=== PATIENT | female | born 1935 ===

== ENCOUNTER 2017-09-29 17:07 | Emergency (ER) | payer OTHER ==
[2017-09-29 18:56] LABS: ABS Basophils 0.1 10^3/ul (0-0.2); ABS Eosinophils 0.1 10^3/ul (0-0.6); ABS Lymphocytes 1.5 10^3/ul (1.0-4.8); ABS Monocytes 0.7 10^3/ul (0-0.8); ABS Nucleated RBC 0 10^3/ul; Eosinophil % 0.8 % (0-6); Hematocrit 44 % (35-47); Hemoglobin 14.9 g/dl (12.0-16.0); Lymphocyte % 14.2 % (25-47); Mean Corpuscular HGB Conc 34 g/dl (31-36); Mean Corpuscular Hemoglobin 30 pg (27-31); Mean Corpuscular Volume 88 fL (80-97); Mean Platelet Volume 9.1 um3 (7.4-10.4); Nucleated Red Blood Cells % 0.1; Platelet Count 232 10^3/ul (150-450); Red Blood Count 5.01 10^6/ul (4.00-5.40); Red Cell Distribution Width 14 % (10.5-15); White Blood Count 10.3 10^3/ul (3.5-10.8)
[2017-09-29 19:03] LABS: INR 0.95 (0.77-1.02)
--- NOTE | 2017-09-29 19:07 | RAD ---
Indication: EKG changes. Bradycardia. Comparison: No relevant prior exams available on the [facility] PACS for comparison. Technique: Upright AP 1850 hours Report: Elevated lung volumes. Mild prominence of interstitial markings. Minimal linear atelectasis at the LEFT lung base. No focal pulmonary lesion, compelling alveolar consolidation, pleural effusion, pneumothorax. The heart and pulmonary vasculature are unremarkable. Mildly tortuous descending thoracic aorta. IMPRESSION: #. Stigmata of potential obstructive lung disease. #. No acute cardiopulmonary process evident.
[2017-09-29 19:17] LABS: EGFR Non-African American 57.3 (>60)
--- NOTE | 2017-09-29 21:38 | ED ---
HPI Cardiac - HPI Summary HPI Summary: Patient is here with her son, complains of episodes of lower heart rate with readings of high 30's and low 40's. , decreased energy, inc in chronic shortness of breath, increased sleeping. Patient started on lisinopril 10 mg daily and atorvastatin 20 mg daily 1 week ago. Patient and son taking patients heart rate and blood pressure daily since starting medication. Denies fever, acute on chronic cough, sore throat, CP, N/V/D, abdominal pain, change in urinary BM. Medical history is CVA "years ago", HTN, glaucoma. Nonsmoker. No anti-coag. 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 Denies history of blood clots, history of cancer, estrogen supplements or medications, recent surgery or trauma, recent long travel, recent immobility. Patient moved here from [place] 1 yr ago, just started care with a PCP 1 week ago. States was not very compliant with PCP back in [place]. - History of Current Complaint Chief Complaint: EDGeneral Stated Complaint: LOW HRT RATE Time Seen by Provider: 09/29/17 18:09 Hx Obtained From: Patient, Family/Frame Hand Onset/Duration: Started Days Ago Timing: Intermittent Initial Severity: Moderate Current Severity: None Pain Intensity: 0 Pain Scale Used: 0-10 Numeric Chest Pain Radiates: No Aggravating Factor(s): Exertion Associated Signs and Symptoms: Positive: Negative - Risk Factors Pulmonary Embolism Risk Factors: Negative Cardiac Risk Factors: Hypertension, Elevated Lipids Atrial Fibrillation Risk Factors: Hypertension - Allergy/Home Medications Allergies/Adverse Reactions: Allergies Allergy/AdvReac Type Severity Reaction Status Date / Time No Known Allergies Allergy Verified 09/29/17 17:13 Home Medications: Home Medications Atenolol TAB* [Tenormin TAB* 25 MG] 25 mg PO DAILY 09/29/17 [History Confirmed 09/29/17] Atorvastatin* [Lipitor*] 20 mg PO DAILY 09/29/17 [History Confirmed 09/29/17] Lisinopril TAB* [Prinivil TAB*] 10 mg PO DAILY 09/29/17 [History Confirmed 09/29] PMH/Surg Hx/FS Hx/Imm Hx Endocrine/Hematology History: Denies: Hx Anticoagulant Therapy Cardiovascular History: Denies: Hx Cardiac Arrest History: Denies: Hx Dialysis Neurological History: Reports: Hx CVA Infectious Disease History: No Infectious Disease History: Denies: Traveled Outside the [place] in Last 30 Days - Social History Alcohol Use: Rare Substance Use Type: Reports: None Smoking Status (MU): Never Smoked Tobacco Review of Systems Constitutional: Negative Eyes: Negative ENT: Negative Cardiovascular: Negative Positive: Shortness Of Breath Gastrointestinal: Negative Genitourinary: Negative Musculoskeletal: Negative Skin: Negative Neurological: Negative Psychological: Normal All Other Systems Reviewed And Are Negative: Yes Physical Exam Triage Information Reviewed: Yes Vital Signs On Initial Exam: Initial Vitals Temp Pulse Resp BP Pulse Ox 98.1 F 46 16 164/55 100 09/29/17 17:10 09/29/17 17:10 09/29/17 17:10 09/29/17 17:10 09/29/17 17:10 Vital Signs Reviewed: Yes Appearance: Positive: Well-Appearing Skin: Positive: Warm Head/Face: Positive: Normal Head/Face Inspection Eyes: Positive: Normal Neck: Positive: Supple Respiratory/Lung Sounds: Positive: Clear to Auscultation Cardiovascular: Positive: Normal Abdomen Description: Positive: Nontender Musculoskeletal: Positive: Normal Neurological: Positive: Normal Psychiatric: Positive: Normal AVPU Assessment: Alert - [place] Coma Scale Best Eye Response: 4 - Spontaneous Best Motor Response: 6 - Obeys Commands Best Verbal Response: 5 - Oriented Coma Scale Total: 15 Diagnostics - Vital Signs Vital Signs Temp Pulse Resp BP Pulse Ox 09/29/17 21:24 98.6 F 09/29/17 21:01 87 14 150/80 94 09/29/17 21:00 84 16 95 09/29/17 20:32 87 15 141/97 98 09/29/17 20:01 83 20 146/85 95 09/29/17 20:00 79 16 95 09/29/17 19:32 82 16 144/85 97 09/29/17 19:01 82 18 170/96 97 09/29/17 19:00 82 20 97 09/29/17 18:31 84 20 172/96 92 09/29/17 18:01 86 9 159/96 94 09/29/17 17:10 98.1 F 46 16 164/55 100 - Laboratory Lab Results: Lab Results 09/29/17 09/29/17 09/29/17 Range/Units 18:41 18:41 18:41 WBC 10.3 (3.5-10.8) 10^3/ul RBC 5.01 (4.00-5.40) 10^6/ul Hgb 14.9 (12.0-16.0) g/dl Hct 44 (35-47) % MCV 88 (80-97) fL MCH 30 (27-31) pg MCHC 34 (31-36) g/dl RDW 14 (10.5-15) % Plt Count 232 (150-450) 10^3/ul MPV 9.1 (7.4-10.4) um3 Neut % (Auto) 77.6 (38-83) % Lymph % (Auto) 14.2 L (25-47) % [place] % (Auto) 6.7 (0-7) % Eos % (Auto) 0.8 (0-6) % Baso % (Auto) 0.7 (0-2) % Absolute Neuts (auto) 8.0 H (1.5-7.7) 10^3/ul Absolute Lymphs (auto) 1.5 (1.0-4.8) 10^3/ul Absolute Monos (auto) 0.7 (0-0.8) 10^3/ul Absolute Eos (auto) 0.1 (0-0.6) 10^3/ul Absolute Basos (auto) 0.1 (0-0.2) 10^3/ul Absolute Nucleated RBC 0 10^3/ul Nucleated RBC % 0.1 INR (Anticoag Therapy) 0.95 (0.77-1.02) Sodium 140 (135-145) mmol/L Potassium 4.2 (3.5-5.0) mmol/L Chloride 105 (101-111) mmol/L Carbon Dioxide 27 (22-32) mmol/L Anion Gap 8 (2-11) mmol/L BUN 19 (6-24) mg/dL Creatinine 0.94 (0.51-0.95) mg/dL Est GFR ( Amer) 69.3 (>60) Est GFR (Non-Af Amer) 57.3 (>60) BUN/Creatinine Ratio 20.2 H (8-20) Glucose 107 H (70-100) mg/dL Lactic Acid (0.5-2.0) mmol/L Calcium 9.3 (8.6-10.3) mg/dL Total Bilirubin 0.60 (0.2-1.0) mg/dL AST 18 (13-39) U/L ALT 11 (7-52) U/L Alkaline Phosphatase 52 (34-104) U/L Troponin I 0.03 (<0.04) ng/mL Total Protein 7.1 (6.4-8.9) g/dL Albumin 3.9 (3.2-5.2) g/dL Globulin 3.2 (2-4) g/dL Albumin/Globulin Ratio 1.2 (1-3) TSH 1.63 (0.34-5.60) mcIU/mL 09/29/17 Range/Units 18:41 WBC (3.5-10.8) 10^3/ul RBC (4.00-5.40) 10^6/ul Hgb (12.0-16.0) g/dl Hct (35-47) % MCV (80-97) fL MCH (27-31) pg MCHC (31-36) g/dl RDW (10.5-15) % Plt Count (150-450) 10^3/ul MPV (7.4-10.4) um3 Neut % (Auto) (38-83) % Lymph % (Auto) (25-47) % [place] % (Auto) (0-7) % Eos % (Auto) (0-6) % Baso % (Auto) (0-2) % Absolute Neuts (auto) (1.5-7.7) 10^3/ul Absolute Lymphs (auto) (1.0-4.8) 10^3/ul Absolute Monos (auto) (0-0.8) 10^3/ul Absolute Eos (auto) (0-0.6) 10^3/ul Absolute Basos (auto) (0-0.2) 10^3/ul Absolute Nucleated RBC 10^3/ul Nucleated RBC % INR (Anticoag Therapy) (0.77-1.02) Sodium (135-145) mmol/L Potassium (3.5-5.0) mmol/L Chloride (101-111) mmol/L Carbon Dioxide (22-32) mmol/L Anion Gap (2-11) mmol/L BUN (6-24) mg/dL Creatinine (0.51-0.95) mg/dL Est GFR ( Amer) (>60) Est GFR (Non-Af Amer) (>60) BUN/Creatinine Ratio (8-20) Glucose (70-100) mg/dL Lactic Acid 0.7 (0.5-2.0) mmol/L Calcium (8.6-10.3) mg/dL Total Bilirubin (0.2-1.0) mg/dL AST (13-39) U/L ALT (7-52) U/L Alkaline Phosphatase (34-104) U/L Troponin I (<0.04) ng/mL Total Protein (6.4-8.9) g/dL Albumin (3.2-5.2) g/dL Globulin (2-4) g/dL Albumin/Globulin Ratio (1-3) TSH (0.34-5.60) mcIU/mL Result Diagrams: 09/29/17 18:41 09/29/17 18:41 Lab Statement: Any lab studies that have been ordered have been reviewed, and results considered in the medical decision making process. - Radiology cxr Xray Interpretation: No Acute Changes Radiology Interpretation Completed By: Radiologist - EKG 1 Cardiac Rate: NL EKG Rhythm: Sinus Rhythm ST Segment: Non-Specific EKG Interpretation: left bundle branch block. A prior EKG not available. Disposition - Course Course Of Treatment: Patient is here with her son, complains of episodes of lower heart rate with readings of high 30's and low 40's. , decreased energy, inc in chronic shortness of breath, increased sleeping. Patient started on lisinopril 10 mg daily and atorvastatin 20 mg daily 1 week ago. Patient and son taking patients heart rate and blood pressure daily since starting medication. Denies fever, acute on chronic cough, sore throat, CP, N/V/D, abdominal pain, change in urinary BM. Medical history is CVA "years ago", HTN, glaucoma. Nonsmoker. No anti-coag. 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 Denies history of blood clots, history of cancer, estrogen supplements or medications, recent surgery or trauma, recent long travel, recent immobility. Patient moved here from [place] 1 yr ago, just started care with a PCP 1 week ago. States was not very compliant with PCP back in [place]. BNP is 696. Other labs and imaging unremarkable. Vital signs within normal limits and stable during stay here in ED. Discussed patient with Dr. Berumen agricultural research technician account manager education who recommended labs , obs and echocardiogram. Hospitalist was consulted. Patient refuses to be admitted. Patient was advised of risks of heart failure and benefit of further evaluation and was repeatedly encouraged to stay for echocardiogram and observation. Patient was persistent in refusing. Signed out AMA. Assessment/Plan: Pt has acute CHF, BNP in 600's. Pt uses "bofeedback" to correct her medical problems. After discussing results of bloodtest, episodes of bradycardia at home and this new CHF dx, pt was advised to stay as inpt for and ECHO and appropriate CHF management. Both hospitalist AND PA reiterated the same points. However, pt was absolutely was set against staying and was discharged AMA. - Diagnoses Provider Diagnoses: CHF (congestive heart failure) Discharge - Sign-Out/Discharge Documenting (check all that apply): Patient Departure - Discharge Plan Condition: Guarded Disposition: AGAINST MEDICAL ADVICE Patient Education Materials: Heart Failure (ED) Referrals: Kiara Reis MD [Primary Care Provider] - Additional Instructions: Follow up with cardiology and primary care for an echocardiogram and further evaluation of congestive heart failure. Return to the ED for any new or worsening symptoms - Billing Disposition and Condition Condition: GUARDED Disposition: Against Medical Advice
[2017-09-29 22:36] VITALS: BP 163/98
--- NOTE | 2017-09-29 23:38 | CONS ---
CC: Dr. Reis * CONSULTATION REPORT: DATE OF CONSULT: 09/29/17 PRIMARY CARE PROVIDER: Dr. Reis. CHIEF COMPLAINT: Low heart rate. HISTORY OF PRESENT ILLNESS: Ms. Zelaya is an 82-year-old female who has a history of hypertension and hyperlipidemia and is on atenolol as an outpatient, who presents to the emergency room with complaints of low heart rate. The patient's son has been checking the patient's vital signs on a daily basis at home to give report to her primary care provider. He noted with today's vital signs that her heart rate was 45. They rechecked it twice and in subsequent reads, it was 37 and 38. This was via automated blood pressure cuff at home. The patient denied any dizziness associated with this. Her son does note that she has been more tired lately and has been sleeping harder; however, no other real significant changes have been noted. The patient states that currently she is feeling well. She does not want to stay in the hospital overnight for observation. PAST MEDICAL HISTORY: 1. Hypertension. 2. Hyperlipidemia. 3. GERD. 4. Past CVA. PAST SURGICAL HISTORY: None. MEDICATIONS: 1. Lisinopril 10 mg p.o. daily. 2. Lipitor 20 mg p.o. daily. 3. Atenolol 25 mg p.o. daily. ALLERGIES: No known drug allergies. FAMILY HISTORY: Mom in her 90s of old age. Dad at the age of 76 of [place]. SOCIAL HISTORY: The patient is a lifelong nonsmoker. She drinks alcohol on occasion. She is a teacher. She is . She resides with her , son , and [id number]. She has 3 children. Her son, Andrew, is her healthcare proxy. REVIEW OF SYSTEMS: A complete 11-system review of systems was obtained. Pertinent positives and negatives are as per HPI and otherwise negative. PHYSICAL EXAM: Blood pressure 163/98, pulse 82, respirations 20, temp 98.9, and O2 sat 93% on room air. General: The patient is a well-developed, elderly female, seen sitting in the stretcher, in no acute distress. 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 Left pupil is approximately 3 to 4 mm. Extraocular muscles are intact. Oropharynx is clear. Oral mucosa is moist. The patient has torus palatini. There is no submandibular, cervical, or supraclavicular adenopathy. Thyroid is not enlarged. No thyroid nodules are noted. Cardiac: Normal S1, S2. Regular rate and rhythm. I do not appreciate any murmurs. There is no lower extremity edema. Pulmonary: Lungs are clear to auscultation bilaterally. Abdomen: Bowel sounds present. Abdomen is soft, nontender, and nondistended. Musculoskeletal: There is no cyanosis or clubbing of the digits. There is full active range of motion of all 4 extremities. Skin is warm and dry. There are no rashes. Neuro: Cranial nerves II through XII are grossly intact. Sensation is intact to light touch throughout. Strength is 5/5 and symmetric in the upper and lower extremities bilaterally. Psych: The patient is alert. She is oriented x3. Affect appears appropriate. DIAGNOSTIC STUDIES/LAB DATA: WBC 10.3, hemoglobin 14.9, hematocrit 44, platelets 232. INR 0.95, D-dimer 336. ABG 7.46//. Sodium 140, potassium 4.2, chloride 105, CO2 of 27, BUN 19, creatinine 0.94, glucose 107, lactic acid 0.7, calcium 9.3, bilirubin 0.6, AST 18, ALT 11, alk phos 52, troponin 0.03 x2. BNP 696. Albumin 3.9, TSH 1.63. EKG reveals normal sinus rhythm with a left bundle branch block. No old EKGs to compare to. Chest x-ray: Stigmata of obstructive lung disease. No acute cardiopulmonary process evident. ASSESSMENT AND PLAN: Ms. Zelaya is an 82-year-old female with history of hypertension, hyperlipidemia, gastroesophageal reflux disease, and past cerebrovascular accident who presents to the emergency room with complaints of low heart rate. Admission was offered; however, the patient declines and therefore is seen this evening for consultation. 1. Low heart rate. The patient reportedly had low heart rate at home. She was asymptomatic with this. This was via automatic blood pressure cuff. I question if it was just a poor reading. The patient's heart rate has been in the 80s to 90s consistently in the emergency room. She remains asymptomatic. The patient will continue on her usual dose of atenolol. The patient could have an outpatient Holter monitor with Dr. Reis. Additionally, the patient was found to have an elevated BNP of 696. The patient has no symptoms consistent with congestive heart failure at this time. Her O2 sats are marginally low in the 90 to 95 range. She has no pulmonary edema on exam and no edema on her lower extremities. At this point, I feel that the patient could get an outpatient echocardiogram if her primary feels that this is important to workup. 2. Hypertension. The patient's blood pressure is moderately elevated in the ER. She is on low dose lisinopril and atenolol. Her lisinopril dose could be increased; however, I will leave this up to her primary care provider to make the change. 3. Hyperlipidemia. Continue Lipitor. 4. Gastroesophageal reflux disease. The patient's son does note that the patient complaints of acid reflux during the day, usually a couple times a week , plus has coughing at night when she lays flat that I suspect is related to her gastroesophageal reflux disease. She is only using Tums p.r.n. at this point. Omeprazole could be considered as a maintenance therapy. 5. The patient is being discharged home from the emergency room. TIME SPENT: 50 minutes were spent on this consultation. Greater than half was spent [id number] with the patient and her son reviewing her history and performing physical exam. [id number]/[facility] #: [id number] DEREK
== END 2017-09-29 23:12 | disposition left against medical advice (07) ==
LOC: ED 17:07
DX: I50.9 Heart failure, unspecified (principal); J44.9 Chronic obstructive pulmonary disease, unspecified; I44.7 Left bundle-branch block, unspecified; R00.1 Bradycardia, unspecified; I10 Essential (primary) hypertension; E78.5 Hyperlipidemia, unspecified
CPT/HCPCS: 36415; 71045; 80053; 82803; 83605; 83880; 84443; 84484; 85025; 85379; 85610; 93005; 99284